=== PATIENT | female | born 1945 | race Caucasian/White ===

== ENCOUNTER 2020-05-30 19:21 | Inpatient (IN) | payer MEDICARE ==
[~2020-05-30] VITALS: Ht 162.6 cm; Wt 89.0 kg
[2020-05-30 19:31] VITALS: BP 126/74
[2020-05-30 20:18] LABS: ABSOLUTE BASOPHILS 0.1 thou/uL (0.0-0.2); ABSOLUTE EOSINOPHILS 0.3 thou/uL (0.0-0.7); ABSOLUTE LYMPHOCYTES 2.1 thou/uL (0.8-5.3); ABSOLUTE MONOCYTES 0.6 thou/uL (0.0-1.2); BASOPHILS 1.1 %; EOSINOPHILS 3.7 %; HEMATOCRIT 44.9 % (37.0-47.0); HEMOGLOBIN 14.6 gm/dL (12.0-15.0); MCH 32.7 pg (26.0-34.0); MCHC 32.6 g/dL (28.0-37.0); MCV 100.2 fL (80.0-100.0); MONOCYTES 8.1 %; MPV 8.8 fl. (7.2-11.1); NUCLEATED RBCS 0 /100WBC; PLATELET COUNT* 123 thou/uL (150-400); POLYS 57.1 %; RBC 4.48 mil/uL (4.20-5.00); RDW-CV 15.2 % (10.5-14.5)
[2020-05-30] MEDS ORDERED: XANAX 0.5 MG0.5 M1 PO (20:32)
[2020-05-30] MEDS ORDERED: NORCO 10-325 T1 EACH PO (20:33)
[2020-05-30] MEDS ORDERED: AMBIEN5 MG PO (20:33)
[2020-05-30] MEDS ORDERED: ZUPLENZ8 MG PO (20:34)
[2020-05-30] MEDS ORDERED: ASA81BEC PO (20:34)
[2020-05-30] MEDS ORDERED: CYMBALTA20 MG PO (20:34)
[2020-05-30 20:40] LABS: CALCIUM 8.8 mg/dL (8.5-10.1); POTASSIUM 3.4 mmol/L (3.5-5.1)
[2020-05-30 20:42] LABS: APTT 25.4 Seconds (25.0-31.3)
[2020-05-30 20:45] LABS: ALBUMIN 2.9 g/dL (3.4-5.0); MAGNESIUM 2.2 mg/dL (1.8-2.4); TOTAL BILIRUBIN 0.8 mg/dL (<0.1-1.0); TOTAL PROTEIN 6.1 g/dL (6.4-8.2)
[2020-05-30 23:33] LABS: URINE BLOOD NEGATIVE (Negative); URINE CLARITY CLEAR; URINE COLOR YELLOW; URINE GLUCOSE-RANDOM NEGATIVE (Negative); URINE KETONES NEGATIVE (Negative); URINE LEUKOCYTES-REFLEX TRACE (Negative); URINE NITRITE-REFLEX NEGATIVE (Negative); URINE PROTEIN NEGATIVE (Negative); URINE SPECIFIC GRAVITY <= 1.005 (1.005-1.030); URINE UROBILINOGEN 0.2 E.U./dl (0.2-1.0)
[2020-05-30 23:37] LABS: URINE BILIRUBIN 1+ (Negative)
[2020-05-30 23:40] LABS: ICTOTEST (BILI CONFIRMATORY) Positive (Negative)
[2020-05-31] VITALS (8 sets, daily range): BP systolic 105–127; BP diastolic 53–72
[2020-05-31 01:34] LABS: SQUAMOUS >10 Many /LPF (0-3)
[2020-05-31 01:35] LABS: BACTERIA-REFLEX 1-9 Few /HPF (None Seen); CASTS None Seen /LPF (None Seen); CRYSTALS None Seen /LPF (None Seen); URINE RBC None Seen /HPF (0-2); URINE WBC-REFLEX 6-15 Few /HPF (0-5)
--- NOTE | 2020-05-31 05:10 | NUR ---
RECEIVED REPORT FROM ANDREZ BATES. PT TRANSFERRED TO RM 204. PT A&OX4. VSS. GENERAL MERCHANDISE SALESPERSON IN PLACE. ADMISISON HISTORY & PHYSICAL ASSESSMENT COMPLETED AND CHARTED. PT ON O2 AT 2L NC. SOB ON EXERTION NOTED. PT TRACING SR ON TELE. PT UPSTANDBY TO RESTROOM. PT COMPLAINED OF ACID REFLUX & REQUESTING FOR XANAX- DR MARRERO MADE AWARE WITH NEW ORDERS. MAINTAINED ON HEPARIN DRIP. CALL LIGHT WITHIN REACH.
--- NOTE | 2020-05-31 10:00 | NUR ---
IR Request for Service received for possible thrombolysis of PE. Spoke with Dr. Stern, the interventional doctor production aide. she states that as long as the patient is stable then anticoagulation is the recommendation. Should patient become unstable within next 24 hours, patient would need to be transferred to another facility to have thrombolysis done. Otherwise continue current coarse and Dr. Chávez may evaluate patient tomorrow AM.
--- NOTE | 2020-05-31 11:41 | NUR ---
Pt is A&O. Resides at home with . Independent. Pt has a walker and cane that she can use as needed. No hx of HH or SNF. Interventional radiology following. Therapy evals pending. Following
--- NOTE | 2020-05-31 16:11 | EKG ---
[place] [address] ELECTROCARDIOGRAM REPORT Name: EFREN BERRY Room: [address] ADM IN M.R.#: [id number] Admission: 05/30/20 Attend Phys: Madison Bai Discharge: Date of : 45 Date of Service: 05/30/201940 Report #: [id number] THIS REPORT FOR: //name// [facility] ED Test Date: 2020-05-30 Test Time: 19:41:47 Pat Name: EFREN BERRY Department: Room: [address] Gender: F Campus Receptionist: SAMANTA : 1945 Requested By: Brie Hernandez Order Number: [id number] Brandon MD: Balta Goldman Measurements Intervals [place] Rate: 89 P: -46 VT: 121 QRS: -22 QRSD: 97 T: -68 QT: 409 QTc: 498 Interpretive Statements Sinus or ectopic atrial rhythm Borderline left axis deviation Probable tamela-lateral infarct, age indeterminate Probable inferior scar Abnrm T, consider ischemia, anterolateral lds No previous ECG available for comparison Electronically Signed On 05-31-2020 16:11:00 NAME PLATE STAMPING MACHINE OPERATOR by Balta Goldman [email or web address] <ELECTRONICALLY SIGNED> By: Balta Goldman MD, FACC 05/31/201610 40 40 Balta Goldman MD, FACC /EPI
--- NOTE | 2020-05-31 16:28 | 2DMMODE ---
[place] [address] 2 D/M-MODE ECHOCARDIOGRAM Name: EFREN BERRY Room: [address] ADM IN M.R.#: [id number] Admission: 05/30/20 Attend Phys: Madison Bai Discharge: Date of : 45 Date of Service: 05/31/20 1628 Report #: [id number] THIS REPORT FOR: cc: FAM - No family physician/PCP FAM - No family physician/PCP Balta Goldman MD [facility] ~ APPROVED REPORT Study performed: 05/31/2020 14:48:25 EXAM: Comprehensive 2D, Doppler, and color-flow Echocardiogram Patient Location: Out-Patient BSA: 1.94 HR: 87 bpm BP: 113/63 mmHg Other Information Study Quality: Fair Indications Pulmonary Embolism 2D Dimensions IVSd: 7.00 (7-11mm) LVOT Diam: 20.09 (18-24mm) LVDd: 37.78 mm PWd: 7.38 (7-11mm) Ascending Ao: 27.24 (22-36mm) LVDs: 25.96 (25-40mm) Aortic Root: 27.63 mm Aortic Valve AoV Peak Gaudencio.: 1.28 m/s AO Peak Gr.: 6.59 mmHg LVOT Max P.90 mmHg AO Mean Gr.: 3.31 mmHg LVOT Mean P.96 mmHg LVOT Max V: 0.69 m/s AO V2 VTI: 17.96 cm LVOT Mean V: 0.45 m/s OCTAVIO (VTI): 2.24 cm2 LVOT V1 VTI: 12.67 cm Mitral Valve E/A Ratio: 0.65 MV Decel. Time: 246.56 ms MV E Max Gaudencio.: 0.35 m/s MV PHT: 71.50 ms MVA (PHT): 3.08 [place]2 [place] [address] 2 D/M-MODE ECHOCARDIOGRAM Name: EFREN BERRY Room: [address] IN .R.#: [id number] Admission: 05/30/20 Attend Phys: Madison Bai Discharge: Date of : 45 Date of Service: 05/31/20 1628 Report #: [id number] TDI E/Lateral E': 5.83 E/Medial E': 5.83 Medial E' Gaudencio.: 0.06 m/s Lateral E' Gaudencio.: 0.06 m/s Pulmonary Valve PV Peak Gaudencio.: 0.78 m/s PV Peak Gr.: 2.45 mmHg Tricuspid Valve RAP Estimate: 5.00 mmHg TR Peak Gr.: 25.27 mmHg RVSP: 30.27 mmHg PA Pressure: 30.27 mmHg Left Ventricle The left ventricle is normal size. There is normal LV segmental wall motion. There is normal left ventricular wall thickness. Left ventricular systolic function is normal. The left ventricular ejection fraction is within the normal range. LVEF is 55-60%. Grade I - abnormal relaxation pattern. Right Ventricle Right ventricle is mild to moderately dilated. The right ventricular systolic function is normal. Atria The left atrium size is normal. The right atrium size is normal. Aortic Valve The aortic valve is normal in structure. No aortic regurgitation is present. There is no aortic valvular stenosis. Mitral Valve The mitral valve is normal in structure. There is no mitral valve regurgitation noted. No evidence of mitral valve stenosis. Tricuspid Valve The tricuspid valve is normal in structure. Mild tricuspid regurgitation. Pulmonic Valve The pulmonary valve is normal in structure. There is no pulmonic valvular regurgitation[place] [address] 2 D/M-MODE ECHOCARDIOGRAM Name: EFREN BERYR Room: [address] IN [facility]#: [id number] Admission: 05/30/20 Attend Phys: Madison Bai Discharge: Date of : 45 Date of Service: 05/31/20 1628 Report #: [id number] The aortic root is normal in size. IVC is normal in size and collapses >50% with inspiration. Pericardium There is no pericardial effusion. <Conclusion> The left ventricle is normal size. There is normal left ventricular wall thickness. Left ventricular systolic function is normal. The left ventricular ejection fraction is within the normal range. LVEF is 55-60%. Grade I - abnormal relaxation pattern. Right ventricle is mild to moderately dilated. The left atrium size is normal. The aortic valve is normal in structure. The mitral valve is normal in structure. The tricuspid valve is normal in structure. Mild tricuspid regurgitation. There is no pericardial effusion. There is normal LV segmental wall motion. <ELECTRONICALLY SIGNED> By: Balta Goldman MD, FACC 05/31/20 1628 1628 1628 Balta Goldman MD, FACC /INF
--- NOTE | 2020-05-31 20:03 | NUR ---
RECEIVED REPORT AROUND 0715. ASSUMED CARE. VS AND ASSESSMENT CHARTED. IV'S INTACT RIGHT HAND AND RIGHT AC. MEDS GIVEN PER JUL. HOURLY ROUNDING PERFORMED. CRITICAL APTT THIS SHIFT. DR VO NOTIFIED. HEPARIN DRIP PROTOCOL FOLLOWED. HEPARIN STOPPED FOR 1 HOUR. RESTARTED HEPARIN DRIP AT 1085UNITS/HR. DR FERNANDEZ WILL SEE PT IN MORNING ABOUT PE. INSTRUCTED PT TO STAY IN BED UNLESS GETTING UP TO BSC. PT STABLE AT THIS TIME. HEART MONITOR ATTACHED AT . SOME NAUSEA THIS SHIFT. PT AXCIOUS THIS AM. NO PAIN REPORTED. ONLY SOME EPIGASTRIC PT DESCRIBE "BURNING" CALL LIGHT WITHIN REACH. REPORT GIVEN TO ELEMENTARY SCHOOL SOCIAL WORKER. ELEMENTARY SCHOOL SOCIAL WORKER ASSUMED CARE.
[2020-06-01] VITALS (7 sets, daily range): BP systolic 103–138; BP diastolic 44–81
--- NOTE | 2020-06-01 09:45 | NUR ---
ASSUMED CARE OF PT THIS AM AROUND 0715- ARTIFICIAL LEATHER CALENDER OPERATOR IN PLACE ORDERED, TRACING SR- UPON ASSESSMENT PT NOTED TO BE RESTING IN BED- PT A&O X4- CONT OF B/B- SBA TO BED SIDE COMMODE, OTHERWISE BED REST- LCTA, RESP EVEN AND UN-LABORED- VSS, O2 SAT 91% ON RA- ABD SOFT/ROUND/NON-TENDER, BS X4 QUADS- LAST BM REPORTED 05/31/20- IV NOTED TO RIGHT HAND WITH IV HEPARIN AND NS INFUSSING PRESCRIBED-IV NOTED TO RIGHT AC INTACT AND SL- NPO STATUS IN PLACE INDICATED R/T TO GI CONSULT/PLANS- NEXT APPT DRAW SCHEDULED FOR 1000- PRN XANAX GIVEN THIS AM PER PT REQUEST R/T ANXIETY- PT DENIES ANY C/O PAIN/DISCOMFORT AT THIS TIME- CALL LIGHT AND PERSONAL BELONGINGS WITH IN REACH- ALL NEEDS MET AT THIS TIME
[2020-06-01 10:03] LABS: ABSOLUTE BASOPHILS 0.1 thou/uL (0.0-0.2); ABSOLUTE EOSINOPHILS 0.3 thou/uL (0.0-0.7); ABSOLUTE LYMPHOCYTES 2.7 thou/uL (0.8-5.3); ABSOLUTE MONOCYTES 0.4 thou/uL (0.0-1.2); ABSOLUTE NEUTROPHILS 3.8 thou/uL (1.6-8.1); BASOPHILS 1.1 %; EOSINOPHILS 4.6 %; HEMATOCRIT 41.5 % (37.0-47.0); HEMOGLOBIN 13.7 gm/dL (12.0-15.0); LYMPHOCYTES 36.7 %; MCH 33.6 pg (26.0-34.0); MCHC 32.9 g/dL (28.0-37.0); MCV 102.1 fL (80.0-100.0); MONOCYTES 5.3 %; MPV 9.2 fl. (7.2-11.1); NUCLEATED RBCS 0 /100WBC; PLATELET COUNT* 102 thou/uL (150-400); POLYS 52.3 %; RBC 4.06 mil/uL (4.20-5.00); RDW-CV 15.4 % (10.5-14.5); WBC 7.3 thou/uL (4.0-11.0)
[2020-06-01 10:15] LABS: ALBUMIN 2.9 g/dL (3.4-5.0); CALCIUM 8.2 mg/dL (8.5-10.1); POTASSIUM 3.4 mmol/L (3.5-5.1); TOTAL BILIRUBIN 0.8 mg/dL (<0.1-1.0); TOTAL PROTEIN 6.1 g/dL (6.4-8.2)
--- NOTE | 2020-06-01 12:29 | NUR ---
Interventional Rad not planning any interventions at this time. On hep gtt. Anticipate dc in a few days.
[2020-06-02] VITALS: BP 124/56
[2020-06-02 04:00] VITALS: BP 138/62
[2020-06-02 04:24] LABS: ABSOLUTE EOSINOPHILS 0.3 thou/uL (0.0-0.7); ABSOLUTE MONOCYTES 0.4 thou/uL (0.0-1.2); ABSOLUTE NEUTROPHILS 2.6 thou/uL (1.6-8.1); BASOPHILS 0.5 %; EOSINOPHILS 6.3 %; HEMATOCRIT 38.1 % (37.0-47.0); HEMOGLOBIN 12.5 gm/dL (12.0-15.0); LYMPHOCYTES 37.4 %; MCH 33.5 pg (26.0-34.0); MCHC 32.8 g/dL (28.0-37.0); MCV 102.1 fL (80.0-100.0); MONOCYTES 7.5 %; MPV 9.4 fl. (7.2-11.1); NUCLEATED RBCS 0 /100WBC; PLATELET COUNT* 84 thou/uL (150-400); POLYS 48.3 %; RBC 3.73 mil/uL (4.20-5.00); RDW-CV 15.2 % (10.5-14.5); WBC 5.5 thou/uL (4.0-11.0)
[2020-06-02 04:39] LABS: ALBUMIN 2.6 g/dL (3.4-5.0); CALCIUM 8.4 mg/dL (8.5-10.1); CREATININE 0.9 mg/dL (0.6-1.3); POTASSIUM 4.2 mmol/L (3.5-5.1); TOTAL BILIRUBIN 0.6 mg/dL (<0.1-1.0)
[2020-06-02 07:51] VITALS: BP 126/71
--- NOTE | 2020-06-02 09:00 | NUR ---
ASSUMED CARE OF PT THIS AM AROUND 0715- SPICE FUMIGATOR IN PLACE ORDERED, TRACING SR- UPON ASSESSMENT PT NOTED TO BE RESTING IN BED- PT A&O X4- CONT OF B/B- UP AD-PRAKASH TO BED SIDE COMMODE- DYSPNEA NOTED WITH LITTLE EXERTION- VSS, O2 SATS 90-91% ON RA- ABD SOFT/OBESE/NON-TENDER, BS X4 QUADS- LAST BM REPORTED 06/01/20- ABD CT COMPLETED THIS AM WITH RESULTS NOTED IN MEDITECH- IV NOTED TO RIGHT HAND INTACT AND SL- PT DENIES ANY C/O PAIN/DISCOMFORT AT THIS TIME- CALL LIGHT AND PERSONAL BELONGINGS WITH IN REACH- ALL NEEDS MET AT THIS TIME
[2020-06-02] MEDS ORDERED: ELIQUIS5 M1 PO (10:05)
[2020-06-02] MEDS ORDERED: ELIQUIS5 MG PO (10:05)
[2020-06-02] MEDS ORDERED: PROTONIX40 M2 PO (10:06)
--- NOTE | 2020-06-02 11:26 | NUR ---
Pt discharging to home today. CM checked the cost of Pt's Eliquis script, it will be $210.94, Pt and stated that they can afford. CM gave a 30 day Eliquis card. No further needs.
[2020-06-02 11:39] VITALS: BP 126/71
[2020-06-02 11:59] VITALS: BP 126/71
== END 2020-06-02 12:00 | disposition home or self-care (01) | DRG 280 ==
LOC: M.ERS 19:21 → M.2W 22:47 → M.TBA-ER 22:47 → M.2W 05-31 01:08
PROVIDERS: Internal Medicine; Personal Emergency Response Attendant; ADMIT Internal Medicine; ATTEND Internal Medicine
DX: I82.431 Acute embolism and thrombosis of right popliteal vein (principal); I26.92 Saddle embolus of pulmonary artery without acute cor pulmonale; I21.A1 Myocardial infarction type 2; R53.2 Functional quadriplegia; F41.1 Generalized anxiety disorder; G89.4 Chronic pain syndrome; E66.9 Obesity, unspecified; E87.6 Hypokalemia; I51.9 Heart disease, unspecified; R10.13 Epigastric pain; Z68.33 Body mass index [BMI] 33.0-33.9, adult; Z79.82 Long term (current) use of aspirin; Z79.899 Other long term (current) drug therapy; Z20.822 Contact with and (suspected) exposure to COVID-19